=== PATIENT | female | born 1980 | race Caucasian/White ===

== ENCOUNTER 2018-01-15 12:45 | Outpatient (CLI) | END 2018-01-15 17:30 | disposition home or self-care (01) ==

== ENCOUNTER 2018-01-19 13:45 | Outpatient (CLI) | END 2018-01-19 16:49 | disposition home or self-care (01) ==

== ENCOUNTER 2018-01-22 10:48 | Outpatient (CLI) | END 2018-01-22 14:30 | disposition home or self-care (01) ==